=== PATIENT | female | born 1975 | race Caucasian/White ===

== ENCOUNTER 2016-10-06 12:15 | Emergency (ER) | payer OTHER ==
[2016-10-06] MEDS ORDERED: PROMETHAZINE HCL 25 MG in 0.9 % SODIUM CHLORIDE 50 ML IV ONE (12:22)
[2016-10-06] MEDS ORDERED: diphenhydrAMINE HCL 50 MG/ML VIAL IVP ONE ×2 (12:22→13:08)
[2016-10-06] MEDS ORDERED: 0.9 % SODIUM CHLORIDE 500 ML IV ONE ×2 (12:24→13:08)
[2016-10-06] MEDS ORDERED: KETOROLAC TROMETHAMINE 30 MG/1ML VIAL IVP ONE (12:25)
--- NOTE | 2016-10-06 12:32 | ED Physician Documentation ---
Headache - HISTORIAN Historian: patient - HPI Chief Complaint: Headache Additional Information: 41 yo F here for migraine BERMUDEZ. BERMUDEZ is frontal and wraps around to posterior occiput. States this is typical of previous migraines. Takes daily amitriptyline and has taken maxalt x3 today without relief. Symptoms started around [id number] this AM and have been worsening. She has been recently treated for sinus infection., currently on augmentin. She does not have periods after ablation. 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 No change in vision. No UE/LE weakness , loss of b/b control. All other systems reviewed and negative except per HPI. - ROS NEURO/PSYCH: denies: confusion, anxiety EYES/ENT: denies: sore throat CVS/RESP: denies: chest pain, shortness of breath GI/: denies: abdominal pain MS/SKIN/LYMPH: denies: muscle aches, back pain - PAST HX Medical History: no pertinent history Allergies/Adverse Reactions: Allergies Allergy/AdvReac Type Severity Reaction Status Date / Time acetaminophen [From Percocet] AdvReac Nausea/Vomi Verified 10/06/16 12:51 ting oxycodone HCl [From Percocet] AdvReac Nausea/Vomi Verified 10/06/16 12:51 ting Home Medications: Ambulatory Orders Medication Instructions Recorded Amitriptyline HCl [Elavil] 50 mg PO DAILY 09/04/13 Acyclovir [Zovirax] 400 mg PO D 11/21/15 Montelukast Sodium [Singulair] 10 mg PO HS 11/21/15 Omeprazole [Prilosec] 20 mg PO QDAY 10/06/16 Rizatriptan Benzoate [Maxalt] 10 mg PO QDAY 10/06/16 - SOCIAL HX Smoking History: non-smoker Alcohol Use: none Drug Use: none - Family HX Family History: none - VITAL SIGNS Vital Signs: Vital Signs Temp Pulse Resp BP Pulse Ox 98.2 F 96 H 16 108/65 96 10/06/16 14:30 10/06/16 14:30 10/06/16 14:30 10/06/16 14:30 10/06/16 14:30 - REVIEWED ASSESSMENTS Nursing Assessment Reviewed: Yes Vitals Reviewed: Yes ED Results Lab/Radiology - Orders Orders: ED Orders Category Date Time Status 0.9 % Sodium Chloride [Normal Saline] 500 ml Med 10/06/16 12:24 Discontinued IV NOW 0.9 % Sodium Chloride [Normal Saline] 500 ml Med 10/06/16 13:08 Discontinued IV NOW Ketorolac Tromethamine [Toradol] Med 10/06/16 12:25 Discontinued 30 mg IVP NOW ONE Promethazine HCl [Phenergan] 25 mg Med 10/06/16 12:22 Discontinued 0.9 % Sodium Chloride [Sodium Chloride] 50 ml IV NOW diphenhydrAMINE HCL [Benadryl] Med 10/06/16 12:22 Discontinued 25 mg IVP NOW ONE diphenhydrAMINE HCL [Benadryl] Med 10/06/16 13:08 Discontinued 25 mg IVP NOW ONE Headache Physical Exam - EXAM General Appearance: moderate distress (appears in pain) EENT: eyes nml inspection, PERRL. No: tender temporal artery, pain over sinuses Neck: normal inspection, supple. No: lymphadenopathy, meningismus Respiratory: no resp distress, chest non-tender, breath sounds normal CVS: reg. rate & rhythm, heart sounds nml. No: murmur Abdomen: non-tender, no organomegaly, nml bowel sounds, no distention Skin: color nml, no rash Extremitites: non-tender, normal range of motion - NEURO/PSYCH Higher Functions: alert, oriented x3, nml speech, mood/affect nml Cranial: nml as tested, no evidence of acute CVA. denies: facial droop Cerebellar: nml as tested, nml gait. denies: abnml Romberg test Sensorimotor: denies: motor nml, sensation nml, weakness Discharge Clincal Impression: Migraine Qualifiers: Migraine type: unspecified Status migrainosus presence: without status migrainosus Intractability: not intractable Qualified Code(s): G43.909 - Migraine, unspecified, not intractable, without status migrainosus Referrals: Primary Doctor,No [Primary Care Provider] - 2 Days Home Medications: Ambulatory Orders Amitriptyline HCl [Elavil] 50 mg PO DAILY 09/04/13 Acyclovir [Zovirax] 400 mg PO D 11/21/15 Montelukast Sodium [Singulair] 10 mg PO HS 11/21/15 Omeprazole [Prilosec] 20 mg PO QDAY 10/06/16 Rizatriptan Benzoate [Maxalt] 10 mg PO QDAY 10/06/16 Comments: Pt still with BERMUDEZ, but initially 10/10 and with nausea, dry heaves. She is now 5/ 10 and feels comfortable managing pain at home at this point, states this is generally where her pain is with treatment. She has no fevers, not the worst BERMUDEZ of life and is typical of previous migraine. She declines CT/LP. Condition: Good Disposition: 01 HOME, SELF-CARE Decision to Admit: NO Decision Time: 13:49
[2016-10-06 14:38] VITALS: BP 108/65
== END 2016-10-06 14:30 | disposition home or self-care (01) ==
LOC: ED 12:15
DX: G43.909 Migraine, unspecified, not intractable, without status migrainosus (principal)
CPT/HCPCS: J1200; J1885; J2550; J7060; 96361; 96374; 96375; 99283; 99284; S1016

== ENCOUNTER 2018-06-08 20:37 | Emergency (ER) | payer OTHER ==
[2018-06-08 20:51] VITALS: BP 136/81
[2018-06-08] MEDS ORDERED: PROMETHAZINE HCL 25 MG/ML VIAL IM ONE (20:57)
[2018-06-08] MEDS ORDERED: diphenhydrAMINE HCL 50 MG/ML VIAL IVP ONE ×2 (20:57→22:30)
[2018-06-08] MEDS ORDERED: DEXAMETHASONE SOD PHOS 4 MG/ML VIAL IVP ONE (20:57)
[2018-06-08] MEDS ORDERED: 0.9 % SODIUM CHLORIDE 1,000 ML IV ONE (20:57)
[2018-06-08] MEDS ORDERED: KETOROLAC TROMETHAMINE 30 MG/1ML VIAL IVP ONE (20:57)
--- NOTE | 2018-06-08 22:21 | ED Physician Documentation ---
Headache - HISTORIAN Historian: patient - HPI Stated Complaint: Migraine Chief Complaint: Headache Onset: hours Timing: still present New Gradual Onset: No Exposure To: none Severity: severe Quality: similar to previous, pain, tightness Associated Symptoms: sensitivity to light, nausea, vomiting. denies: fever, chills, sweating, problems with vision, neck pain, stiffness, speech problems, weakness, trouble walking, tingling, numbness, dizziness, light-headedness Exacerbated By: light, noise, movement Further Comments: no - ROS NEURO/PSYCH: denies: confusion, anxiety, depression, fainting, other EYES/ENT: denies: sore throat, difficulty swallowing, sinus pain, drainage, other CVS/RESP: none GI/: denies: abdominal pain, diarrhea, problems urinating, incontinence, other MS/SKIN/LYMPH: denies: muscle aches, back pain, rash, skin lesions, swollen glands, other all systems neg except as marked: Yes - PAST HX Medical History: migraines, other (depression, GERD) Surgical History: other (tonsilectomy) Allergies/Adverse Reactions: Allergies Allergy/AdvReac Type Severity Reaction Status Date / Time acetaminophen [From Percocet] AdvReac Nausea/Vomi Verified 06/08/18 20:51 ting oxycodone HCl [From Percocet] AdvReac Nausea/Vomi Verified 06/08/18 20:51 ting Home Medications: Ambulatory Orders Medication Instructions Recorded Amitriptyline HCl [Elavil] 50 mg PO DAILY 09/04/13 Omeprazole [Prilosec] 20 mg PO QDAY 10/06/16 Rizatriptan Benzoate [Maxalt] 10 mg PO QDAY 10/06/16 Bupropion HCl [Wellbutrin Xl] 1 tab PO BID 06/08/18 Ondansetron HCl Rapdis [Zofran Odt] 4 mg PO Q6 PRN #30 tab 06/08/18 - SOCIAL HX Smoking History: cigarettes - Family HX Family History: denies: none - VITAL SIGNS Vital Signs: Vital Signs Temp Pulse Resp BP Pulse Ox 96.6 F L 62 15 136/81 06/08/18 22:51 06/08/18 22:51 06/08/18 22:51 06/08/18 22:51 - REVIEWED ASSESSMENTS Nursing Assessment Reviewed: Yes Vitals Reviewed: Yes Progress - Progress Progress: Patient medicated for migraine with toradol, decadron, promethazine for nause, 1L NS and benadryl IV. patient continues to c/o pain - additional benadryl IV given and stadol IV. At discharge patient states she feels better. ED Results Lab/Radiology - Orders Orders: ED Orders Category Date Time Status Place IV Lock 1T Care 06/08/18 20:57 Active 0.9 % Sodium Chloride [Normal Saline] 1,000 ml Med 06/08/18 20:57 Discontinued IV NOW Butorphanol Tartrate [Stadol] Med 06/08/18 22:31 Discontinued 1 mg IV NOW ONE Dexamethasone Sod Phosphate [Decadron] Med 06/08/18 20:57 Discontinued 4 mg IVP NOW ONE Ketorolac Tromethamine [Toradol] Med 06/08/18 20:57 Discontinued 30 mg IVP NOW ONE Ondansetron HCl Rapdis [Zofran Odt] Med 06/08/18 22:25 Discontinued 4 mg .ROUTE .STK-MED ONE Ondansetron HCl Rapdis [Zofran Odt] Med 06/08/18 22:25 Discontinued 4 mg .ROUTE .STK-MED ONE Ondansetron HCl Rapdis [Zofran Odt] Med 06/08/18 22:23 Discontinued 8 mg PO NOW ONE Promethazine HCl [Phenergan] Med 06/08/18 20:57 Discontinued 25 mg IM NOW ONE diphenhydrAMINE HCL [Benadryl] Med 06/08/18 20:57 Discontinued 25 mg IVP NOW ONE diphenhydrAMINE HCL [Benadryl] Med 06/08/18 22:30 Discontinued 25 mg IVP NOW ONE Headache Physical Exam - EXAM General Appearance: mild distress, other (photophobia) EENT: no facial swelling, eyes nml inspection, PERRL, nml ENT, pharynx nml Respiratory: no resp distress, chest non-tender, breath sounds normal CVS: reg. 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 Higher Functions: alert, oriented x3, nml speech, mood/affect nml Cranial: nml as tested, no evidence of acute CVA Cerebellar: nml as tested, nml gait Sensorimotor: motor nml, sensation nml Discharge Clincal Impression: Migraine Qualifiers: Migraine type: unspecified Status migrainosus presence: without status migrainosus Intractability: not intractable Qualified Code(s): G43.909 - Migraine, unspecified, not intractable, without status migrainosus Prescriptions: Ondansetron HCl Rapdis [Zofran Odt] 4 mg PO Q6 PRN #30 tab PRN Reason: Nausea / Vomiting Referrals: Primary Doctor,No [Primary Care Provider] - 2 Days Additional Instructions: Take your amitriptyline on arrival home Rest in a cool dark room Nausea medication has been sent to the pharmacy Condition: Stable Disposition: 01 HOME, SELF-CARE Decision to Admit: NO Decision Time: 22:21
[2018-06-08] MEDS ORDERED: ONDANSETRON HCL 4 MG TAB.RAPDIS PO ONE (22:23)
[2018-06-08] MEDS ORDERED: ONDANSETRON HCL 4 MG TAB.RAPDIS ONE ×2 (22:25)
[2018-06-08] MEDS ORDERED: BUTORPHANOL TARTRATE 2 MG/ML VIAL IV ONE (22:31)
== END 2018-06-08 22:51 | disposition home or self-care (01) ==
LOC: ED 20:37
DX: G43.909 Migraine, unspecified, not intractable, without status migrainosus (principal)
CPT/HCPCS: A9270; J0595; J1100; J1200; J1885; J2550; J7030; 96365; 96372; 96375; 96376; S1016

== ENCOUNTER 2019-01-30 04:02 | Emergency (ER) | payer OTHER ==
[2019-01-30] MEDS ORDERED: NORMAL SALINE 1,000 ML IV.SOLN IV ONE (04:20)
[2019-01-30] MEDS ORDERED: ONDANSETRON HCL/PF 4 MG/ 2ML VIAL ONE (04:20)
[2019-01-30] MEDS ORDERED: PROMETHAZINE HCL 25 MG/ML VIAL ONE (04:20)
[2019-01-30] MEDS ORDERED: KETOROLAC TROMETHAMINE 30 MG/1ML VIAL ONE (04:20)
[2019-01-30] MEDS ORDERED: methylPREDNISolone SOD SUCC 125 MG/2 ML VIAL ONE (04:20)
== END 2019-01-30 06:10 ==
LOC: ED 04:02
DX: R51 Headache (principal); E86.0 Dehydration; R11.0 Nausea; H57.89 Other specified disorders of eye and adnexa
CPT/HCPCS: 96361; 96365; 96375; 99283; 99284; J1885; J2405; J2550; J2930; J7030; S1016